=== PATIENT | female | born 1995 | race Caucasian/White ===

== ENCOUNTER 2018-12-23 11:17 | Emergency (ER) | payer BC, OTHER ==
[~2018-12-23] VITALS: Ht 172.7 cm; Wt 68.0 kg
[2018-12-23 11:28] VITALS: BP 142/84
[2018-12-23] MEDS ORDERED: ACET-704 PO (11:45)
[2018-12-23] MEDS ORDERED: ORPH-16 PO (11:45)
[2018-12-23] MEDS ORDERED: KETO10TA PO (11:45)
--- NOTE | 2018-12-23 11:46 | PHYS DOC ---
Past History Past Medical History: No Pertinent History Past Surgical History: Other Alcohol Use: None Drug Use: None Adult General Chief Complaint Chief Complaint: BACK PAIN OR INJURY HPI HPI Patient is a 23-year-old female who presents with complaint of left-sided back pain that started yesterday. 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 Patient states that since that time she has had pain in her mid thoracic all the way down through her lumbar spine on the left. She denies any loss of bowel or bladder function and also denies any saddle anesthesia. She rates pain as moderate and states the pain is worsened with movement of the trunk or bending.[] Review of Systems Review of Systems Constitutional: Denies fever or chills [] Respiratory: Denies cough or shortness of breath [] Cardiovascular: No additional information not addressed in HPI [] Musculoskeletal: Positive left sided back pain [] Integument: Denies rash or skin lesions [] Neurologic: Denies headache, focal weakness or sensory changes [] Allergies Allergies Allergies Coded Allergies Type Severity Reaction Last Updated Verified No Known Drug Allergies 04/03/16 No Physical Exam Physical Exam Constitutional: Well developed, well nourished, no acute distress, non-toxic appearance. [] Cardiovascular:Heart rate regular rhythm, no murmur [] Lungs & Thorax: Bilateral breath sounds clear to auscultation [] Back: There is tenderness to palpation with palpable spasm in the mid to lower thoracic and lumbar paraspinal musculature on the left. [] Extremities: No tenderness, no cyanosis, no clubbing, ROM intact, no edema. [] Current Patient Data Vital Signs Vital Signs Date Time Temp Pulse Resp B/P (MAP) Pulse Ox O2 Delivery O2 Flow Rate FiO2 12/23/18 11:28 98.3 82 16 96 Room Air EKG EKG [] Radiology/Procedures Radiology/Procedures [] Course & Med Decision Making Course & Med Decision Making Pertinent Labs and Imaging studies reviewed. (See chart for details) [] Dragon Disclaimer Dragon Disclaimer This electronic medical record was generated, in whole or in part, using a voice recognition dictation system. Departure Departure: Impression: Primary Impression: Acute thoracic myofascial strain Additional Impression: Acute lumbar myofascial strain Disposition: 01 HOME, SELF-CARE Condition: STABLE Referrals: DIANA MOREL MD (PCP) Patient Instructions: Back Pain, Adult, Form - Excuse from Work, School, or Physical Activity, Muscle Strain Scripts Ketorolac Tromethamine (KETOROLAC TROMETHAMINE) 10 Mg Tablet 1 TAB PO PRN Q6HRS PRN for PAIN, #20 TAB Prov: TAI MALAVE Jr. DO 12/23/18 Orphenadrine Citrate (ORPHENADRINE CITRATE) 100 Mg Tablet.er 1 TAB PO BID PRN for MUSCLE SPASMS, #14 TAB Prov: TAI MALAVE Jr. DO 12/23/18 Acetaminophen With Codeine (TYLENOL WITH CODEINE #3 TABLET) 1 Each Tablet 1 TAB PO Q4-6HRS PRN for PAIN, #14 TAB Prov: TAI MALAVE Jr. DO 12/23/18 Problem Qualifiers Primary Impression: Acute thoracic myofascial strain Encounter type: initial encounter Qualified Codes: S29.019A - Strain of muscle and tendon of unspecified wall of thorax, initial encounter Additional Impression: Acute lumbar myofascial strain Encounter type: initial encounter Qualified Codes: S39.012A - Strain of muscle, fascia and tendon of lower back, initial encounter TAI MALAVE Jr. DO Dec 23, 2018 11:46
== END 2018-12-23 11:53 | disposition home or self-care (01) ==
LOC: ER 11:17
DX: S29.012A Strain of muscle and tendon of back wall of thorax, initial encounter (principal); S39.012A Strain of muscle, fascia and tendon of lower back, initial encounter; X50.9XXA Other and unspecified overexertion or strenuous movements or postures, initial encounter; Y93.89 Activity, other specified; Y92.89 Other specified places as the place of occurrence of the external cause; Y99.8 Other external cause status
CPT/HCPCS: 99283